=== PATIENT | male | born 1990 | race Hispanic/Latino ===

== ENCOUNTER 2016-07-19 14:18 | Emergency (ER) | payer OTHER ==
[~2016-07-19] VITALS: Ht 182.9 cm; Wt 97.7 kg
[2016-07-19 14:53] VITALS: BP 115/68; PULSE 70; RESP 15; O2SAT 97
--- NOTE | 2016-07-19 16:38 | ED.REPORT ---
HPI-Back Pain Under 40 Date of Service Jul 19, 2016 ED Provider: Dr. Brenden Renner M.D. A 25 year old male with a history of chronic back pain presents to the ED from the [place] reporting exacerbation of his low back pain onset three days ago, while playing basketball. The pain is "sharp" and left-sided, with radiation down his left leg. The patient also reports intermittent left leg numbness. He denies fever, chills, bowel incontinence, urinary incontinence, leg weakness, groin numbness, reduced urination, or other symptoms. The patient's chronic intermittent back pain began five years ago after a back injury. Nursing Notes Stated Complaint: PAIN IN LOWER BACK Chief Complaint: Back Pain or Injury Nursing Notes Reviewed: Yes Allergies: Coded Allergies: No Known Allergies (Unverified , 07/19/16) Scheduled Prednisone (PredniSONE) 20 Mg Tablet 40 MG PO DAILY Scheduled PRN Cyclobenzaprine (Cyclobenzaprine) 7.5 Mg Tablet 7.5 MG PO HS PRN PRN Spasm General Time Seen by MD: 16:37 Chief Complaint Lumbar pain Hx Obtained From: Patient Arrived By: Walk-in Sudden in Onset?: Yes Onset Occurred: 3 days ago Symptom Duration: Since onset Location: : Perispinal lumbar Quality: Painful Severity: Current: Moderate Severity: Maximum: Moderate Pertinent Negative: Relieved by nothing Related History: Reports: Chronic back pain Recent Healthcare: Recent doctor visit Similar Sx Previous: Yes Past Medical History Past Medical History Chronic back pain s/p back injury Past Surgical History None reported Smoking History Unknown if Ever Smoker Social History Drug Use: Denies drug use Ambulatory Status Independent Review of Systems Constitutional: Denies: Chills, Fever Respiratory: Denies: Non-productive cough, Shortness of breath GI: Denies: Diarrhea, Vomiting Male: Denies Incontinence, Denies Urination decreased Musculoskeletal: Reports: Back pain (Left lumbar), Extremity pain (Left leg) Neurologic: Reports: Numbness (Intermittent left leg numbness, denies groin numbness), Denies: Bladder dysfunction, Bowel dysfunction, Focal weakness Complete sys rev & neg: except as marked. Physical Exam Initial Vital Signs Vital Signs (First) Date Time Temp Pulse Resp B/P Pulse Ox O2 Delivery O2 Flow Rate FiO2 07/19/16 14:53 36.8 70 15 115/68 97 Room Air Initial VS: Reviewed Head / Eyes: Atraumatic, Normocephalic ENT: Conjunctiva normal, No scleral icterus Neck: Supple, Full range of motion Skin: Warm, Dry, No cyanosis Psychiatric: Mood/affect normal, Behavior normal, Normal thought content General/Constitutional: Awake, Alert Back: No midline vertebral tend Flank / Spine / Paraspinal: Positive: Lumbar paraspinal tend... (Left-sided) No bony deformity Neurologic: Oriented X3, Speech NL, No motor deficits (Strength 5/5 bilateral lower extremities), No sensory deficits (Bilateral lower extremities), Reflexes equal bilat (Patellar reflexes normal bilaterally) Respiratory / Chest: Breath sounds NL, Breath sounds = bilat, No respiratory distress Cardiovascular: Heart rate NL, Regular rhythm, Heart sounds NL, No gallop, No murmurs, No rubs, Peripheral circulation NL (Good radial pulses) Re-Eval/Medical Decision Med Decision/Clinical Course In summary, the patient is a 25-year-old male with past medical history significant for chronic low back pain, who presents with left lateral low back pain exacerbation in the setting of playing basketball with pain radiating down his left leg. Our primary and secondary assessment reveals an awake, alert patient in no acute distress. Hemodynamically stable and afebrile. Exam reveals normal neurologic exam of the lower extremities. Given this immunocompetent, afebrile, patient's history and exam, suspect muscle strain or spasm, he also has some associated symptoms of sciatica. No concerning signs or symptoms suggestive of cauda equina, cord compression, epidural abscess or other neurologic emergency. History not suggestive of referred intraabdominal pathology or vascular emergency. There is no history of significant trauma, fever, incontinence, unexplained weight loss, cancer history , long-term steroid use or IV drug use. And given the patient's young age, I do not feel imaging is warranted at this time. Given the patient's workup, feel they are safe for discharge with conservative management. The patient was given intramuscular Toradol and Flexeril for symptom control while here in the ER. We will additionally try a short course of prednisone. He will follow up closely with his primary care physician to discuss whether imaging studies are indicated. I do not feel that they are emergently needed at this time. Have discussed with the patient results of workup, indications for return including: motor weakness in the lower extremities and/or bowel or bladder incontinence. Also emphasized the need for PCP follow up. They understand and agree with the plan. Re-Evaluation/Progress : Time of Eval: 17:30 Patient Status: Condition improved Re-Evaluation/Progress Note: Discussed with patient physical exam findings, diagnosis, and plan for discharge. Follow-up and return to the ER instructions given. Patient agrees with plan for care and all questions were addressed. Counseled Regarding: Diagnosis, Need for follow-up, When/why to return to ED Discharge & Departure Impression: Primary Impression: Sciatica Laterality: left Qualified Code: M54.32 - Sciatica, left side Additional Impression: Low back pain Chronicity: acute Back pain laterality: left Sciatica presence: with sciatica Sciatica laterality: sciatica of left side Qualified Code: M54.42 - Lumbago with sciatica, left side Disposition: Home All VS Reviewed: Yes Condition: Improved Patient Instructions: Low Back Strain (ED), Sciatica (ED) Additional Instructions: Thank you for seeking care at the emergency room. It is difficult for us to make definitive diagnoses in the ED but we believe that you are experiencing sciatica. Our primary goal today in the ED was to evaluate you for any life-threatening conditions. Your evaluation was reassuring. You will be discharged with a prescription for prednisone, please take as directed. You may take ibuprofen 600 mg 3 times daily for pain. Do not take for more than one week. I recommended stretching and applying ice packs/hot packs. You may take Flexeril at night as needed for back spasm. Do not drive, drink alcohol or combine this with any other pain medications or muscle relaxers. You should follow-up with your primary doctor in the next week for an MRI. At this time I do not think you need an MRI in the emergency room. You should return to the ED immediately if you develop urinary incontinence, bowel incontinence, groin numbness, fevers, vomiting, cough, shortness of breath , chest pain, lightheadedness, weakness or any other concerning signs or symptoms. These are signs you need an emergency imaging test of your back. Thank you for letting us partake in your care today. Referrals: [facility] ([facility]P) Scribe Attestation Portions of this note were transcribed by Wendie Bailey. I, Dr. Renner, personally performed the history, physical exam, and medical decision-making; I reviewed and confirmed the accuracy of the information in the transcribed note. Signed by: Kat Jacinto, 07/19/2016, 18:30 copies to: [facility] Brenden Renner MD Jul 19, 2016 16:38 WENDIE BAILEY Jul 19, 2016 17:17
[2016-07-19] MEDS ORDERED: CYCL7.5T27 PO (17:28)
[2016-07-19] MEDS ORDERED: PRE20 PO (17:28)
== END 2016-07-19 18:08 | disposition home or self-care (01) ==
LOC: SED 14:18
DX: M54.42 Lumbago with sciatica, left side (principal); R20.0 Anesthesia of skin; X50.0XXA Overexertion from strenuous movement or load, initial encounter; Y93.67 Activity, basketball; Y92.9 Unspecified place or not applicable; Y99.8 Other external cause status; Z87.828 Personal history of other (healed) physical injury and trauma
CPT/HCPCS: 96372; 99283; J1885